=== PATIENT | male | born 1975 | race Hispanic/Latino ===

== ENCOUNTER 2025-07-18 09:08 | Observation (INO) | payer MEDICAID ==
[~2025-07-18] VITALS: Ht 162.6 cm; Wt 83.0 kg
--- NOTE | 2025-07-18 09:18 | NUR ---
PATIENT IN ROOM
--- NOTE | 2025-07-18 09:26 | ERN ---
General Chief Complaint: Other Problems Stated Complaint: BOWEL PREP FOR COLONOSCOPY Time Seen by MD: 09:09 Source: patient History of Present Illness Initial Comments Patient is a 50-year-old gentleman sent in by Dr. Mcdaniel sent in to be admitted for gi eval. Allergies: Coded Allergies: No Known Allergies (Unverified Allergy, Unknown, 07/18/25) Past Medical History Past Medical History: GERD, Hypertension, Schizophrenia Medical History Other: MICROCEPHALY, UNGUIUM, VIT D Past Surgical History: Unknown ROS Dictation CONSTITUTIONAL: No chills, no fever, no weakness, no diaphoresis, no malaise. HEAD/FACE: No signs of trauma. EENT: No eye pain, no blurred vision, no tearing, no double vision, no ear pain, no ear discharge, no nose pain, no nasal congestion, no throat pain, no throat swelling, no mouth pain. RESPIRATORY: No cough, no orthopnea, no SOB, no stridor, no wheezing. CARDIOVASCULAR: No chest pain, no edema, no palpitations, no syncope. GASTROINTESTINAL/ABDOMINAL: No abdominal pain, no constipation, no diarrhea, no nausea, no vomiting. GENITOURINARY: No abnormal discharge, no dysuria, no frequent urination, no hematuria. No complaints of pain in the genitals. MUSCULOSKELETAL: No back pain, no gout, no joint pain, no joint swelling, no muscle pain, no muscle stiffness, no neck pain. INTEGUMENTARY: No change in color, no change in hair/nails, no dryness, no le bret, no lumps, no rash. NEUROLOGICAL/PSYCH: No anxiety, not depressed, no emotional problem, no headache, no numbness, no pre-existing deficit, no history of seizures, no tremors, no weakness. HEMATOLOGIC/LYMPHATIC: Not anemic, no history of blood clots, no apparent bleeding, no bruising, glands not swollen. All Systems Negative, Except as Noted. Physical Exam Physical Exam Dictation VITAL SIGNS: Reviewed. GENERAL APPEARANCE: Alert, oriented x3, no acute distress, obese. HEAD AND FACE: Non-traumatic. EYES: PERRL, pink conjunctivas, eyelid no trauma, anterior chamber clear. EARS: Pinnas intact and no signs of trauma or erythema. Ear canals clear and no discharge. TMs no erythema. NOSE: No discharge, no bleeding. OROPHARYNX: Mouth normal, teeth no caries, tongue pink. Pharynx clear, no erythema. Tonsils no exudates, no abscesses noted. Mucous membrane moist. NECK: Supple, non-tender, no thyromegaly, no masses, no JVD, no bruits. BREAST: Deferred. CHEST: No tenderness, no crepitus, no paradoxical movement, no retractions. LUNGS: Clear, well-ventilated, symmetric, no rales, no wheezing, no rhonchi, no stridor, good breath sounds bilaterally. HEART: Regular rate, regular rhythm, no murmur, no gallops. VASCULAR: No peripheral edema. ABDOMEN: Soft, positive bowel sounds, nondistended, no guarding, nontender, no rebound, no masses no hepatomegaly, no splenomegaly, no Quispe's sign, no hernias. RECTAL: Deferred. GENITAL: Deferred. NEUROLOGICAL: Normal speech, gross motor function intact, gross sensory function intact. MUSCULOSKELETAL: Neck nontender, full range of motion, back nontender, full range of motion. EXTREMITIES: Nontender, full range of motion. SKIN: Color pink, dry, no turgor, no rash, no lacerations, no abrasions, no contusions. LYMPHATICS: Deferred. Results Laboratory and Microbiology Labs Reviewed?: Yes MDM MDM: Differential diagnosis: GI evaluation, bowel prep, Rationale: Tests considered and ordered secondary to shared decision making include: labs, ECG and radiology Previous outside records reviewed: Old ER visits. Risk of complication and/or morbidity or mortality of patient management: None Medications-Per medication reconciliation Need for hospitalization: Patient does meet criteria for hospitalization. Need for emergency major/minor surgery: No There are no social concerns with this patient. Prescription drug management Prescriptions will include symptomatic care Patient's prior external medical records from other ER visits were reviewed by me as indicated. Prior testing and results from previous visits were reviewed. Prior tests were taken into account with medical decision making and resource utilization, independent historian/historians were used to obtain complete medical history. I independently interpreted the test that were performed, results were reviewed by me and considered findings on radiology if ordered. Medical management and examination interpretation discussions were had by me with other qualified healthcare professionals as indicated for the patient's care. Patient is sent in by Dr. August for colonoscopy, Dr. maglalanes on the case ED Course Vital Signs Date Time Temp Pulse Resp B/P (MAP) Pulse Ox O2 Delivery O2 Flow Rate FiO2 07/18/25 09:09 97.9 81 16 117/78 97 Room Air 0 DX & DISP Disposition: Inpatient Decision to Admit Time: 09:30 Departure Impression: Primary Impression: Effective bowel preparation for surgery Additional Impression: Colonoscopy planned Condition: Stable Referrals: SELF,REFERRAL (PCP) KRYSTAL SAMSON MD Jul 18, 2025 09:26
[2025-07-18 11:57] VITALS: BP_SYST 123; BP_SYST 124; BP_DIAS 80; BP_DIAS 85; PULSE 69; PULSE 78; RESP 18; TEMP 98.1
[2025-07-18 13:19] LABS: NUCLEATED RED BLOOD CELLS 0.0 % (0.0-0.19); PLATELET COUNT (AUTO) 149.0 K/uL (130-400); RED BLOOD CELL COUNT(AUTO) 4.12 MIL/uL (4.50-6.20); RED CELL DISTRIBUTION WIDTH 12.1 % (11.0-15.5); WHITE BLOOD COUNT (AUTO) 5.1 K/uL (4.8-10.8)
[2025-07-18 13:34] LABS: CREATININE 0.6 mg/dL (0.5-1.3); GLOMERULAR FILTR. RATE CALC 118.0 mL/min (>90); GLUCOSE,RANDOM 90.0 mg/dL (70-105); SODIUM SERUM 140.0 mmol/L (136-145); UREA NITROGEN, BLOOD 17.0 mg/dL (7-18)
[2025-07-18 15:37] VITALS: BP 132/88; PULSE 62; RESP 18; TEMP 98.1
[2025-07-18] MEDS: LACTULOSE 20 GM/30 ML UDCUP PO ONE ×2 (16:53→18:21)
--- NOTE | 2025-07-18 16:53 | HP ---
DATE OF SERVICE: 07/18/2025 HISTORY AND PHYSICAL PRESENTING COMPLAINT: Need for colonoscopy. HISTORY OF PRESENT ILLNESS: A 50-year-old male with history of obesity, mental retardation who has been admitted for an elective colonoscopy. The patient was found with anemia and intermittent epigastric pain. The patient has been admitted for colonoscopy. The patient is awake but very poor historian, not able to give any history. The patient is from [place]. PAST MEDICAL HISTORY: Obesity. Developmental delay. PAST SURGICAL HISTORY: None. ALLERGIES: No known drug allergies. HOME MEDICATIONS: Reviewed. SOCIAL HISTORY: No alcohol, tobacco, or illicit drug use. FAMILY HISTORY: Noncontributory. REVIEW OF SYSTEMS: Available history obtained from the medical record. The patient is developmentally delayed, not able to give any history. PHYSICAL EXAMINATION: GENERAL: A young male, awake. VITAL SIGNS: Temperature 98.4, pulse 69, respirations 18, BP 124/88. EYES: No icterus. Pupils are equal and reactive. HENT: No oral thrush seen. Moist oral mucosa. NECK: Supple. No JVD or thyromegaly. LUNGS: Good air entry. No rales. No rhonchi. CARDIOVASCULAR SYSTEM: S1 and S2. ABDOMEN: Full, soft. Bowel sounds present. CENTRAL NERVOUS SYSTEM: Awake, alert. No focal deficits. SKIN: No rashes. No itchiness. LYMPHATIC: No peripheral lymphadenopathy. BACK: No deformity. No pressure ulcer. MUSCULOSKELETAL: No joint swelling, erythema or tenderness. ASSESSMENT: A 50-year-old male admitted for colonoscopy. Current problems include: Anemia. Obesity. Need for colonoscopy. PLAN: Admit the patient to medical floor. Continue colonoscopy preparation as per Gastroenterology. Continue clear liquid diet. Continue antimetic. Tylenol as needed for pain or fever or chills. Monitor electrolytes. Home medication will be reconciled. TID: [id number] RECEIPT: [id number] [facility]
[2025-07-18] MEDS: PEG 3350/NA SULF,BICARB,CL/KCL 4000 ML SOLN PO ONE (16:54)
[2025-07-18] MEDS: D5 NS WITH 20 mEq KCl 1000ML IV ONE (16:58)
[2025-07-18 17:03] LABS: IMMATURE GRANULOCYTE ABSOLUTE 0.01 K/uL (0-1); NUCLEATED RED BLOOD CELLS 0.0 % (0.0-0.19); PLATELET COUNT (AUTO) 147 K/uL (130-400); RED BLOOD CELL COUNT(AUTO) 4.30 MIL/uL (4.50-6.20); RED CELL DISTRIBUTION WIDTH 12.3 % (11.0-15.5); WHITE BLOOD COUNT (AUTO) 4.8 K/uL (4.8-10.8)
[2025-07-18 17:18] LABS: INR 1.03 (0.85-1.15)
[2025-07-18 17:20] LABS: ASPARTATE AMINOTRANSFERASE 12.0 U/L (10-37); CREATININE 0.6 mg/dL (0.5-1.3); GLOMERULAR FILTR. RATE CALC 118.0 mL/min (>90); GLUCOSE,RANDOM 86.0 mg/dL (70-105); SODIUM SERUM 141.0 mmol/L (136-145); TOTAL PROTEIN, SERUM 7.0 g/dL (6.0-8.3); UREA NITROGEN, BLOOD 15.0 mg/dL (7-18)
[2025-07-18 19:27] VITALS: O2SAT 97
[2025-07-18 20:00] VITALS: BP 121/82; PULSE 73; RESP 18; TEMP 97.7
--- NOTE | 2025-07-18 22:44 | NUR ---
COLON PREP #1 HIGH COLONIC TAP H2O ENEMA DONE ORDERED , TOLERATED WELL. LARGE EFFLUENT NOTED POST ENEMA, CLEAR YELLOW. TOLERATED WELL Addendum: 07/18/25 at 2249 by MARCELLE GANDARA RN RN Amended: Links added.
[2025-07-19] VITALS (21 sets, daily range): BP systolic 95–153; BP diastolic 52–98; PULSE 54–78; RESP 14–18; TEMP 97.8–98.5; O2SAT 95
[2025-07-19 06:08] LABS: IMMATURE GRANULOCYTE ABSOLUTE 0.02 K/uL (0-1); NUCLEATED RED BLOOD CELLS 0.0 % (0.0-0.19); PLATELET COUNT (AUTO) 152 K/uL (130-400); RED BLOOD CELL COUNT(AUTO) 4.35 MIL/uL (4.50-6.20); RED CELL DISTRIBUTION WIDTH 12.3 % (11.0-15.5); WHITE BLOOD COUNT (AUTO) 4.9 K/uL (4.8-10.8)
[2025-07-19 06:15] LABS: INR 1.09 (0.85-1.15)
[2025-07-19 06:27] LABS: ASPARTATE AMINOTRANSFERASE 13.0 U/L (10-37); CREATININE 0.7 mg/dL (0.5-1.3); GLOMERULAR FILTR. RATE CALC 113.0 mL/min (>90); GLUCOSE,RANDOM 89.0 mg/dL (70-105); SODIUM SERUM 141.0 mmol/L (136-145); TOTAL PROTEIN, SERUM 6.9 g/dL (6.0-8.3); UREA NITROGEN, BLOOD 14.0 mg/dL (7-18)
--- NOTE | 2025-07-19 07:15 | NUR ---
GI COLONOSCOPY PREP PER REPORT GIVEN BY NIGHT NURSE PATIENT IS READY TO HAVE COLONOSCOPY COMPLETED, STOOL WAS YELLOW CLEAR ON LAST BOWEL MOVEMENT.
--- NOTE | 2025-07-19 10:57 | NUR ---
DCP:[facility] Pt has been a resident of the [facility] since 2022. Pt does not have any DME at facility and staff assist him with ADLs as necessary. PCP is the dr at [facility]. At [place] pt will go back to the [facility] and they will assist with transportation.
--- NOTE | 2025-07-19 11:42 | PN ---
INFECTIOUS DISEASE PROGRESS NOTE Date of Service: Jul 19, 2025 SUBJECTIVE: [ ] PHYSICAL EXAM EYES: Anicteric. Pupils equal and reactive. HENT: No oral thrush seen, moist Oral mucosa NECK: Supple, no JVD or thyromegaly. LUNGS: Good air entry. No rales, no rhonchi. CARDIOVASCULAR: S1, S2 regular. No murmur heard. ABDOMEN: Soft, non tender, bowel sounds present, no organomegaly CENTRAL NERVOUS SYSTEM: Awake, alert, oriented x 3. No focal deficits. SKIN: No rashes, no swelling. LYMPHATICS: No peripheral lymphadenopathy MUSCULOSKELETAL: No joint swelling, erythema or tenderness. EXTREMITIES: No cyanosis or clubbing BACK: No deformity, no pressure ulcer. GENITOURINARY: No dysuria or hematuria Vital Sign (Last 12 Hours) 07/19/25 07/19/25 07/19/25 07/19/25 00:00 04:00 08:52 11:30 Temp 98.4 98.4 98.1 98.1 Pulse 70 54 73 70 Resp 18 18 16 18 B/P (MAP) 103/71 121/72 121/86 122/74 Pulse Ox 95 96 95 96 O2 Delivery Room Air Room Air Room Air Room Air Intake & Output (last 24hrs) 07/18/25 07/18/25 07/19/25 15:00 23:00 07:00 Intake Total 500 ml 2500 ml Balance 500 ml 2500 ml LABS: Laboratory: Test 07/19/25 05:50 07/18/25 13:16 Range/Units White Blood Count 4.9 4.8-10.8 K/uL Red Blood Count 4.35 L 4.50-6.20 MIL/uL Hemoglobin 13.7 L 14.0-18.0 g/dL Hematocrit 40.9 L 42-54 % Mean Corpuscular Volume 94.0 79-99 fL Mean Corpuscular Hemoglobin 31.5 27.0-33.0 pg Mean Corpuscular Hemoglobin Concent 33.5 32.0-36.0 g/dL Red Cell Distribution Width 12.3 11.0-15.5 % Platelet Count 152 130-400 K/uL Mean Platelet Volume 11.2 H 7.5-10.5 fL Immature Granulocyte % (Auto) 0.4 0-1 % Neutrophils (%) (Auto) 51.4 40.0-77.0 % Lymphocytes (%) (Auto) 35.2 21.0-51.0 % Monocytes (%) (Auto) 10.8 3.0-13.0 % Eosinophils (%) (Auto) 1.8 0.0-8.0 % Basophils (%) (Auto) 0.4 0.0-5.0 % Neutrophils # (Auto) 2.5 1.8-7.7 K/uL Lymphocytes # (Auto) 1.7 1.0-4.8 K/uL Monocytes # (Auto) 0.5 0.1-1.0 K/uL Eosinophils # (Auto) 0.09 0.00-0.70 K/uL Basophils # (Auto) 0.02 0.00-0.20 K/uL Absolute Immature Granulocyte (auto 0.02 0-1 K/uL Nucleated Red Blood Cells 0.0 0.0-0.19 % Prothrombin Time 11.5 9.6-11.6 SEC Prothromb Time International Ratio 1.09 0.85-1.15 Sodium Level 141 136-145 mmol/L Potassium Level 3.5 3.5-5.1 mmol/L Chloride Level 103 101-111 mmol/L Carbon Dioxide Level 30 21-32 mmol/L Blood Urea Nitrogen 14 7-18 mg/dL Creatinine 0.7 0.5-1.3 mg/dL Glomerular Filtration Rate Calc 113 >90 mL/min Random Glucose 89 70-105 mg/dL Total Calcium 8.2 L 8.5-10.1 mg/dL Total Bilirubin 0.3 # 0.2-1.0 mg/dL Aspartate Amino Transf (AST/SGOT) 13 10-37 U/L Alanine Aminotransferase (ALT/SGPT) 16 12-78 U/L Alkaline Phosphatase 51 50-136 U/L Total Protein 6.9 6.0-8.3 g/dL Albumin 3.6 3.5-5.0 g/dL Magnesium Level 1.70 L 1.80-2.40 mg/dL ASSESSMENT: Needing a colonoscopy. Developmental delay PLAN: Scheduled for colonoscopy possible today. This case was reviewed and discussed with my supervising physician Dr. Vega and the above assessment and plan was formulated and agreed upon. ATTESTATION BY PHYSICIAN I have seen and examined the patient. I reviewed the documentation, medical decision making, and treatment plan as noted by the mid-level provider above. I agree with the findings and plan of care. MELISSA VEGA MD, MIRTA L [facility] Jul 19, 2025 11:42
[2025-07-19] MEDS ORDERED: LIDOCAINE HCL 400MG/20ML VIAL ONE (12:58)
--- NOTE | 2025-07-19 18:42 | NUR ---
DISCHARGE PERIPHERAL IV REMOVED DISCHARGE EDUCATION AND INSTRUCTIONS PROVIDED TO PATIENT PATIENT AWARE TO FOLLOW UP WITH PCP IN 2 WEEKS AFTER DISCHARGE PATIENT AWARE TO CONTINUE HOME MEDICATIONS DIRECTED BY MD ALL QUESTIONS ANSWERED
--- NOTE | 2025-07-19 23:30 | DS ---
Discharge Summary Hospital Course This is a 50-year-old male with history of obesity, mental retardation who has been admitted for an elective colonoscopy. The patient was found with anemia and intermittent epigastric pain. The patient has been admitted for colonoscopy. The patient is awake but very poor historian, not able to give any history. The patient is from [place]. FINAL DISCHARGE DIAGNOSIS: -Admitted for screening for malignant neoplasm of colon, s/p colonoscopy with findings of 2 flat polyps in the cecum which were removed and nonbleeding internal hemorrhoids. -Diabetes mellitus. -Anemia. -Obesity. PLAN: Discharge patient to back to the [facility] after dinner today. Follow GI recommendations. Continue same home medications. Recommendations to repeat the colonoscopy in 2 years. This case was reviewed and discussed with my supervising physician Dr. Vega and the above assessment and plan was formulated and agreed upon. ATTESTATION BY PHYSICIAN I have seen and examined the patient. I reviewed the documentation, medical decision making, and treatment plan as noted by the mid-level provider above. I agree with the findings and plan of care. MELISSA VEGA MD, MIRTA L [facility] Jul 19, 2025 23:30
== END 2025-07-19 19:45 | disposition home or self-care (01) ==
LOC: EDH 09:08 → EDHIP 09:09 → 3CH 10:43
PROVIDERS: ADMIT Internal Medicine Infectious Disease; ATTEND Internal Medicine Infectious Disease
DX: D12.8 Benign neoplasm of rectum (principal); K64.0 First degree hemorrhoids; K21.9 Gastro-esophageal reflux disease without esophagitis; D64.9 Anemia, unspecified; E11.9 Type 2 diabetes mellitus without complications; E66.9 Obesity, unspecified; F20.9 Schizophrenia, unspecified; I10 Essential (primary) hypertension; Q02 Microcephaly; Z79.899 Other long term (current) drug therapy; Z98.890 Other specified postprocedural states
CPT/HCPCS: 99284; 83735; 80053 ×2; 85025 ×2; 85027; 85610 ×2; 36415 ×2; 88305; 45380; G0378 ×35; J3480; J3490; J2704; A4620; A4215 ×2; A4223; A4657; A7002; A4222; A4221; A4663; J7030; A4606; 80048